=== PATIENT | female | born 1955 | race Caucasian/White ===

== ENCOUNTER 2017-08-18 04:58 | Outpatient (CLI) | payer OTHER | END 2017-08-18 23:59 | disposition home or self-care (01) | LOC: DIABETIC 04:58 | PROVIDERS: ATTEND Family Medicine | DX: E11.9 Type 2 diabetes mellitus without complications (principal) | CPT/HCPCS: G0108 ==

== ENCOUNTER 2017-11-23 02:07 | Outpatient (CLI) | payer OTHER | END 2017-11-23 23:59 | disposition home or self-care (01) | LOC: DIABETIC 02:07 | PROVIDERS: ATTEND Family Medicine | DX: E11.65 Type 2 diabetes mellitus with hyperglycemia (principal) | CPT/HCPCS: G0108 ==

== ENCOUNTER 2017-11-23 07:26 | Outpatient (CLI) | payer OTHER ==
[2017-11-23 08:10] LABS: HEMOGLOBIN A1C 6.9 % (4.5-6.2)
[2017-11-23 08:29] LABS: ALANINE AMINOTRANSFERASE 24 U/L (12-78); ALBUMIN 3.9 G/DL (3.4-5.0); ALBUMIN/GLOBULIN RATIO 1.1 (1.1-1.5); ALKALINE PHOSPHATASE 84 IU/L (46-116); ANION GAP 10 (8-16); ASPARTATE AMINO TRANSFERASE 16 U/L (10-37); BILIRUBIN,TOTAL 0.8 MG/DL (0.1-1.0); BLOOD UREA NITROGEN 15 MG/DL (7-18); BUN/CREATININE RATIO 15.8 (6.6-38.0); C-REACTIVE PROTEIN 0.68 MG/DL (0.0-0.5); CALCIUM 9.8 MG/DL (8.5-10.1); CHLORIDE 103 MMOL/L (99-107); CHOL/HDL RATIO 3.4 (0.00-4.99); CHOLESTEROL 172 MG/DL (0-200); CREATININE 0.95 MG/DL (0.40-0.90); GLUCOSE 141 MG/DL (70-104); HDL CHOLESTEROL 50 MG/DL (35-60); LDL CHOLESTEROL 93 MG/DL (50-100); PHOSPHORUS 3.7 MG/DL (2.3-4.5); SODIUM 139 MMOL/L (135-145); TOTAL CARBON DIOXIDE 26.1 MMOL/L (24-32); TOTAL PROTEIN 7.3 G/DL (6.4-8.2); TRIGLYCERIDES 195 MG/DL (20-135); eGFR 60 ML/MIN
== END 2017-11-23 23:59 | disposition home or self-care (01) ==
LOC: LAB 07:26
PROVIDERS: ATTEND Family Medicine
DX: Z00.01 Encounter for general adult medical examination with abnormal findings (principal); E11.9 Type 2 diabetes mellitus without complications; I10 Essential (primary) hypertension; E78.5 Hyperlipidemia, unspecified
CPT/HCPCS: 36415; 80053; 80061; 82306; 83036; 84100; 84550; 85651; 86140